=== PATIENT | female | born 1985 | race Caucasian/White ===

== ENCOUNTER 2020-07-01 14:17 | Emergency (ER) | payer MEDICAID, SELFPAY ==
--- NOTE | ~2020-07-01 | XR_ITS ---
EXAMINATION: XR HAND, LEFT CLINICAL INFORMATION: Puncture wound base third finger COMPARISON: None TECHNIQUE: PA, lateral, and oblique views of the left hand. FINDINGS: The bones and soft tissues are normal. No fracture. Alignment is anatomic. Joint spaces are maintained. No erosions or soft tissue calcifications. XR/XR hand LT 2V IMPRESSION: Normal left hand. No radiopaque foreign body or visible x-ray evidence of soft tissue injury.
[2020-07-01 14:56] VITALS: BP 117/66; PULSE 72; RESP 18; TEMP 36.8; O2SAT 98; BMI 42.0
--- NOTE | 2020-07-01 15:56 | ED_ITS ---
HPI - Wound/Laceration General Chief Complaint: Wound/Laceration Stated Complaint: laceration to finger Time Seen by Provider: 07/01/20 15:27 Source: patient Mode of arrival: ambulatory Limitations: no limitations History of Present Illness HPI narrative: 35 y/o female presenting with wound to her left hand/base of her middle finger that she sustained with a knife while cutting [place] at home. She states she felt the knife hit a bone. She was able to control the bleeding with pressure. She is able to move all of her fingers and has no numbness, tingling or active bleeding. She is up to date on her tetanus. Onset (ago): hour(s) (1) Extremity Location: left: hand (base of middle finger) Place: home Patient tetanus UTD: Yes Context: accidental Associated symptoms: none Treatments prior to arrival: bandage Related Data Allergies Allergy/AdvReac Type Severity Reaction Status Date / Time No Known Allergies Allergy Unverified 12/10/19 18:49 Review of Systems Review of Systems: Constitutional: No Fever, No Chills Musculoskeletal: + joint pain, No Myalgias Skin: + Skin Lesions, No rash Neuro: No Weakness, No Numbness, No Dizziness Heme/Lymph: No Bruising PMFSH Past Medical History Attestation statement: The following information was validated with the patient. Medical History Asthma Social History Social History Advance Directives: No Advance Directives Information Provided: Yes Physical Exam Vital Signs: Vital Signs: Last Vital Signs Temp 98.2 F 07/01/20 14:56 Pulse 72 07/01/20 14:56 Resp 18 07/01/20 14:56 BP 117/66 07/01/20 14:56 Pulse Ox 98 07/01/20 14:56 Body Mass Index 42.0 Appearance: Alert. Oriented X3. No acute distress. HEENT: normal inspection CVS: Normal heart rate and rhythm. Pulses normal. Respiratory: No respiratory distress. Skin: Skin warm and dry. Normal skin color. Normal skin turgor. No rashes. Extremities: dorsum of left hand with a 0.5cm puncture wound at the base of the 3rd digit, no active bleeding. Neuro: Oriented X 3. No motor deficit. No sensory deficit. Course Course Course Narrative: 35 y/o female presenting with small puncture wound due to an accidental knife injury. Will get XR to r/o you. NV intact. Reevaluation(s) Reevaluation #1: XR negative for fractures. Wound has been closed with Dermabond with good effect. Patietn counseled on wound care and management as well as signs/symptoms of infection. Stable for discharge. Critical Care Time Critical Care Time Critical Care Time: No Discharge Plan Discharge Clinical Impression: Puncture wound Patient Disposition: Home, Self-Care Instructions: Puncture Wound (ED), Skin Adhesive Care (ED) Additional Instructions: Your x-ray today did not show any broken bones. Your wound was glued shut. This adhesive will come off on its own, usually in 1 week. Do not get wet until tomorrow. At that time you can briefly wash with soap and water and then pat dry. Come back to the ER if you develops signs or symptoms of infection including redness, warmth, pain, or drainage of pus. Follow up with your doctor as needed.
== END 2020-07-01 16:52 | disposition home or self-care (01) ==
PROVIDERS: Emergency Provider Emergency Medicine
DX: S61.233A Puncture wound without foreign body of left middle finger without damage to nail, initial encounter (principal); W26.0XXA Contact with knife, initial encounter; Y93.G1 Activity, food preparation and clean up; Y92.010 Kitchen of single-family (private) house as the place of occurrence of the external cause; Y99.9 Unspecified external cause status
CPT/HCPCS: 73120; 99283

== ENCOUNTER 2021-10-19 13:03 | Outpatient (RCR) | payer MEDICARE, MEDICAID, SELFPAY ==
--- NOTE | 2021-10-19 14:31 | MHC.OT.OEV ---
[address] [phone] F: [phone] Occupational Therapy Evaluation Diagnosis: Right wrist pain Date of Onset: Date of Surgery: Attending Provider: Dr Yohana Tavera Prescribed Treatment: Evmarielena and Bala VELÁZQUEZ Follow Up Appointment: 11/17/21 History of Current Condition: 36 yo female reports about four years ago she was reaching into the back of her car, hit are right wrist on her emergency break and injured her wrist. She was seen by provider and was given a rest brace, she only wore it for three days but had to take it off to do daily activities. Over the last few months, she reports the pain has been worse and radiates up to her right posterior elbow. Notes she has been helping her sister move and lifting heavy boxes over the past couple months. She was seen at urgent care and an elbow orthosis was ordered but pt never obtained because she reports pain is her wrist. She does not have a current PCP, but OT was ordered from urgent care and she will be finding PCP to follow up with. Significant Medical History: Back Pain Asthma Precautions/Contraindications: Patient Goals: Relieve pain in right wrist Hand Dominance: Right Observations: QuickDASH Score: 27 Prior Level of Function and Occupation Self Care, Employment, Leisure: Pt reports she is on social security Enjoys going to the park with the kids Living Situation, Family and/or Social Support: Lives w/ 11 yo son and 16 yo daughter Current Level of Function and Occupation Self Care, Employment, Leisure: Difficulty cooking (stirring the rice), tying her shoes, sweeping, carrying laundry basket Sleep: No issues w/ sleep Driving: No issues w/ driving Vision: Balance: Pain Assessment Pain Score: Pain Scale Used: Pain Location and Description: Left wrist pain, ulnar and radial wrists w/ painful ulnar deviation and tenderness over radial wrist Right ulnar wrist, no painful palpation or with provocative tests - intermittent, no pain currently Aggravating Factors: Gripping, lifting, carrying Alleviating Factors: Tylenol, Motrin, prefers heat over cold Skin and Soft Tissue Assessment Skin and Soft Tissue: Comments: WNL Nerve assessment Ulnar Nerve: WNL Median Nerve: WNL Radial Nerve: WNL Comments: Sensory Assessment Temperature: WNL Light Touch: WNL Proprioception: WNL Vibration: Comments: Edema Assessment Upper Extremity: WNL Lower Extremity: Comments: Dexterity Assessment Dexterity: WNL Comments: Special Tests Comments: (+) Finklesteins Left (-) Finklesteins Right (-) Ballotment Test (-) Resisted wrist extension (-) Scaphoid Shift test AROM(PROM) Strength Cervical Cervical Flexion: Cervical Extension: Cervical Lateral Flexion: Cervical Rotation: Comments: WFL Shoulder Flexion: Extension: Abduction: Internal Rotation: External Rotation: Comments: WFL Flexion: Extension: Abduction: Internal Rotation: External Rotation: Comments: Elbow Flexion: Extension: Pronation: Supination: Comments: WFL Flexion: Extension: Pronation: Supination: Comments: WFL Wrist Flexion: Extension: Ulnar Deviation: Radial Deviation: Comments: WFL Flexion: Extension: Ulnar Deviation: Radial Deviation: Comments: WFL Thumb Thumb CMC Flexion: Thumb MCP Flexion: Thumb IP Flexion: Radial Abduction: [place] Abduction: [place] (Kapandji 0-10): Comments: WFL Digits Index MCP: PIP: DIP: Long MCP: PIP: DIP: Ring MCP: PIP: DIP: Small MCP: PIP: DIP: Comments: WFL Gross Grasp: R 58lb L 35lb Lateral Pinch: Two-Point Pinch: Three-Jaw Isiah: Comments: Patient Education Primary Language: [place] Dev Ops Engineer Required: No Current Knowledge: Understands information with skills for self-management Teaching Method: Demonstration Handouts Verbal Education Needs Identified on Evaluation: ADL's Disease Information Equipment Use Exercise Pain Safety How did patient/family demonstrate learning? Patient demonstrates Patient verbalizes Barriers to Learning: None Readiness for Learning: Accepting Who was educated? Patient Comments: Plan of Care Assessment: 36 yo female presents to OT w/ vague c/o right wrist-elbow pain and left radial and ulnar wrist pain. She reports four years ago she hit her wrist in her care, but the pain has worsened over the few months as she has been helping her sister move apartment. 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 On assessment, I am unable to provoke right wrist or elbow/arm pain and her right gross grasp is strong. Her primary complaint today is consistent with [place] Quervains tendinitis, likely from overuse. I have educated her on proper wrist orothosis for each hand to allow for resting and stabilization and strengthening exercises. She has PCP follow up in about a month and at that time may request order for left wrist pain, but at this time no outpatient OT indicated for right side. STG Duration: Short Term Goals: LTG Duration: Lead Pharmacy Technician Goals: Frequency and Duration: The patient will be seen Treatment Plan: Electronically Signed By: Annie Hewitt OTR/L Reviewed/agree with student documentation: Therapist: Please sign and return to therapist, Thank you for your referral.
== END 2021-10-19 14:32 | disposition home or self-care (01) ==
LOC: HO.OT 13:03
PROVIDERS: Visit Provider Internal Medicine
DX: M77.11 Lateral epicondylitis, right elbow (principal)
CPT/HCPCS: 97110; 97165

== ENCOUNTER 2022-12-25 09:14 | Outpatient (REF) | payer MEDICARE, MEDICAID, SELFPAY ==
[2022-12-25 11:52] LABS: MANUAL DIFF FLAG NO
[2022-12-25 12:10] LABS: Estimated Average Glucose 97 mg/dL
[2022-12-25 12:16] LABS: Basophils Absolute Auto 0.1 X10*3/uL (0.0-0.2); Basophils Percent Auto 1.5 % (0-2); Eosinophils Absolute Auto 0.4 X10*3/uL (0.0-0.4); Eosinophils Percent Auto 7.4 % (0-4); Hematocrit 38.4 % (37.0-47.0); Hemoglobin 12.7 g/dl (12.0-16.0); Imm Gran Abs Auto 0.02 X10*3/uL (0.00-0.03); Imm Gran Pct Auto 0.3 % (0.0-0.4); Lymphocytes Absolute Auto 2.8 X10*3/uL (1.2-4.9); Lymphocytes Percent Auto 48.5 % (20-40); Mean Corpuscular HGB Conc 33.1 g/dl (31.0-35.0); Mean Corpuscular Hemoglobin 28.5 pg (27.0-33.0); Mean Corpuscular Volume 86.3 fL (80.0-98.0); Mean Platelet Volume 11.3 fL (9.4-12.3); Monocytes Absolute Auto 0.5 X10*3/uL (0.1-1.2); Monocytes Percent Auto 8.2 % (2-11); Neutrophils Percent Auto 34.1 % (45-73); Platelet Count 253 X10*3/uL (160-400); Red Blood Count 4.45 X10*6/uL (4.20-5.50); Red Cell Distribution Width 12.9 % (11.0-16.0); White Blood Count 5.9 X10*3/uL (4.8-10.8)
[2022-12-25 12:37] LABS: Syphilis Screen Nonreactive (Nonreactive)
[2022-12-25 12:41] LABS: HIV AB/AG Nonreactive (Nonreactive); HIV Num 1 0.05 S/CO (0.00-0.99)
[2022-12-25 12:42] LABS: Cholesterol 182 mg/dL (<200); HDL Cholesterol 36 mg/dL (>40); LDL Cholesterol Calculated 119 mg/dL (<100); Triglycerides 137 mg/dL (<150)
[2022-12-25 12:47] LABS: TSH reflex Free T4 0.59 uIU/mL (0.32-4.0)
[2022-12-27 18:58] LABS: HCV Log PCR <1.18 NOT DETECTED Log IU/mL (NOT DETECTED); HepC Viral Load <15 NOT DETECTED IU/mL (NOT DETECTED)
== END 2022-12-25 09:15 | disposition home or self-care (01) ==
LOC: HO.HHCL 09:14
PROVIDERS: Visit Provider Registered Nurse
DX: Z00.00 Encounter for general adult medical examination without abnormal findings (principal); E78.2 Mixed hyperlipidemia; R31.29 Other microscopic hematuria
CPT/HCPCS: 36415; 80061; 83036; 84443; 85025; 86780; 87389; 87522